=== PATIENT | female | born 1965 | race Caucasian/White ===

== ENCOUNTER 2017-02-16 12:34 | Emergency (ER) | payer BC ==
[2017-02-16 16:11] VITALS: BP 147/98
== END 2017-02-16 16:11 | disposition home or self-care (01) ==
LOC: ED 12:34
DX: G44.209 Tension-type headache, unspecified, not intractable (principal); R03.0 Elevated blood-pressure reading, without diagnosis of hypertension
CPT/HCPCS: J3010; Q0162

== ENCOUNTER 2018-08-22 23:02 | Emergency (ER) | payer SELFPAY ==
[~2018-08-22] VITALS: Ht 152.4 cm; Wt 71.2 kg
[2018-08-22 23:05] VITALS: Ht 152.4 cm; Wt 71.2 kg
[2018-08-23 05:44] VITALS: BP 167/98
== END 2018-08-23 05:44 | disposition home or self-care (01) ==
LOC: ED 23:02
DX: S52.501A Unspecified fracture of the lower end of right radius, initial encounter for closed fracture (principal); S52.611A Displaced fracture of right ulna styloid process, initial encounter for closed fracture; I10 Essential (primary) hypertension; Z86.2 Personal history of diseases of the blood and blood-forming organs and certain disorders involving the immune mechanism; W18.39XA Other fall on same level, initial encounter; Y93.89 Activity, other specified; Y92.89 Other specified places as the place of occurrence of the external cause; Y99.8 Other external cause status
CPT/HCPCS: J1885; J3490; Q0092; Q0162

== ENCOUNTER 2020-02-25 00:55 | Emergency (ER) | payer OTHER ==
[~2020-02-25] VITALS: Ht 152.4 cm; Wt 74.8 kg
[2020-02-25 01:14] VITALS: BP 134/91; Ht 152.4 cm; Wt 74.8 kg
== END 2020-02-25 02:43 | disposition left against medical advice (07) ==
LOC: ED 00:55
DX: Z53.21 Procedure and treatment not carried out due to patient leaving prior to being seen by health care provider (principal)